=== PATIENT | female | born 1990 | race Caucasian/White ===

== ENCOUNTER 2019-09-02 07:54 | Day surgery (SDC) | payer MEDICAID ==
[~2019-09-02 07:54] MED LIST: Glycopyrrolate 0.2 MG/ML SDV ONE; Midazolam 1 MG/ML 2 ML SDV ONE; Phenylephrine/Normal Saline 100 MCG/ML 10 ML Syringe ONE; Propofol 200 MG/20 ML SDV ONE; Rocuronium 100 MG/10 ML Syringe ONE; Sodium Chloride 0.9% 10 ML SDV IV PRN; Sodium Chloride 0.9% 10 ML Syringe FLUSH PRN; Sodium Chloride 0.9% 2.5 ML Syringe FLUSH PRN; ceFAZolin 1 GM in Premix Bag 1 BAG IV ONE; ePHEDrine 50 MG/ML SDV ONE; fentaNYL 250 MCG/5 ML SDV ONE
[2019-09-02] MEDS: Lactated Ringers 1,000 ML IV SCH ×3 (08:15→21:00)
[2019-09-02] MEDS ORDERED: Scopolamine 1.5 MG Transdermal Patch TRDERM PRN (08:20)
--- NOTE | 2019-09-02 08:20 | PCM.PREANE ---
Preanesthetic Assessment - Anesthesia/Transfusion/Family Hx Anesthesia History: Prior Anesthesia Without Reaction Family History of Anesthesia Reaction: No Transfusion History: No Prior Transfusion(s) Intubation History: Unknown - Review of Systems General: No Symptoms Pulmonary: No Symptoms Cardiovascular: No Symptoms Gastrointestinal: No Symptoms Neurological: No Symptoms Other: Reports: None - Physical Assessment Height: 5 ft 6.25 in Weight: 79.379 kg ASA Class: 2 Mental Status: Alert & Oriented x3 Airway Class: Mallampati = 1 Dentition: Reports: Normal Dentition Thyro-Mental Finger Breadths: 3 Mouth Opening Finger Breadths: 3 ROM/Head Extension: Full Lungs: Clear to Auscultation, Normal Respiratory Effort Cardiovascular: Regular Rate, Regular Rhythm - Allergies Allergies/Adverse Reactions: Allergies Allergy/AdvReac Type Severity Reaction Status Date / Time metoclopramide [From Reglan] Allergy Dizziness Verified 08/27/19 12:20 antidepressants Allergy twitching Uncoded 08/27/19 12:28 hormones Allergy twitching Uncoded 08/27/19 12:28 - Blood Blood Available: No - Anesthesia Plan Pre-Op Medication Ordered: None - Acknowledgements Anesthesia Type Planned: General Anesthesia Pt an Appropriate Candidate for the Planned Anesthesia: Yes Alternatives and Risks of Anesthesia Discussed w Pt/Guardian: Yes Pt/Guardian Understands and Agrees with Anesthesia Plan: Yes PreAnesthesia Questionnaire HEENT History: Reports: Other (See Below) Other HEENT History: wears glasses Cardiovascular History: Reports: Arrhythmia Respiratory History: Reports: None Gastrointestinal History: Reports: None Genitourinary History: Reports: UTI, Recurrent 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 History: Reports: PID, Polycystic Ovaries, Musculoskeletal History: Reports: None Neurological History: Reports: None Psychiatric History: Reports: ADHD, Anxiety, Bipolar, Depression Endocrine/Metabolic History: Reports: None Hematologic History: Reports: None Immunologic History: Reports: None Oncologic (Cancer) History: Reports: None Dermatologic History: Reports: None - Past Surgical History Head Surgeries/Procedures: Reports: None HEENT Surgical History: Reports: Oral Surgery, Tonsillectomy Cardiovascular Surgical History: Reports: None Respiratory Surgical History: Reports: None GI Surgical History: Reports: None Female Surgical History: Reports: Endometrial Ablation, Tubal Ligation Endocrine Surgical History: Reports: None Neurological Surgical History: Reports: None Musculoskeletal Surgical History: Reports: None Oncologic Surgical History: Reports: None Dermatological Surgical History: Reports: None - SUBSTANCE USE Smoking Status *Q: Current Some Day Smoker Tobacco Use Within Last Twelve Months: Cigarettes Recreational Drug Use History: Yes 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 [No Known Home Meds] 08/27/19 [History] - CURRENT (IN HOUSE) MEDS Current Meds: Current Medications Sodium Chloride (Saline Flush) 10 ml FLUSH ASDIRECTED PRN PRN Reason: Keep Vein Open Sodium Chloride (Saline Flush) 2.5 ml FLUSH ASDIRECTED PRN PRN Reason: Keep Vein Open Sodium Chloride (Normal Saline) 10 ml IV ASDIRECTED PRN PRN Reason: IV Use Discontinued Medications Ephedrine Sulfate (Ephedrine Sulfate) Confirm Administered Dose 50 mg .ROUTE .STK-MED ONE Stop: 09/02/19 07:04 Fentanyl (Sublimaze) Confirm Administered Dose 250 mcg .ROUTE .STK-MED ONE Stop: 09/02/19 07:03 Glycopyrrolate (Robinul) Confirm Administered Dose 0.2 mg .ROUTE .STK-MED ONE Stop: 09/02/19 07:04 Glycopyrrolate (Robinul) Confirm Administered Dose 0.2 mg .ROUTE .STK-MED ONE Stop: 09/02/19 07:04 Cefazolin Sodium/Dextrose 1 gm (/ Premix) 50 mls @ 100 mls/hr IV ONETIME ONE Stop: 09/02/19 05:29 Midazolam HCl (Versed 1 Mg/Ml) Confirm Administered Dose 2 mg .ROUTE .STK-MED ONE Stop: 09/02/19 07:02 Phenylephrine HCl (Phenylephrine In Ns 100 Mcg/Ml) Confirm Administered Dose 1 mg .ROUTE .STK-MED ONE Stop: 09/02/19 07:04 Propofol (Diprivan 20 Ml) Confirm Administered Dose 200 mg .ROUTE .STK-MED ONE Stop: 09/02/19 07:03 Rocuronium [place] (Zemuron) Confirm Administered Dose 100 mg .ROUTE .STK-MED ONE Stop: 09/02/19 07:03 Succinylcholine Chloride (Succinylcholine Chloride) Confirm Administered Dose 200 mg .ROUTE .STK-MED ONE Stop: 09/02/19 07:04
[2019-09-02 09:01] LABS: BLOOD UREA NITROGEN,BUN 14 mg/dL (7.0-18.0); CHLORIDE,CL 105 mmol/L (98-107); GLUCOSE RANDOM 88 mg/dL (74-106); POTASSIUM,K 3.9 mmol/L (3.5-5.1); SODIUM,NA 142 mmol/L (136-145)
[2019-09-02] MEDS ORDERED: ceFAZolin 1 GM Vial ONE (09:37)
[2019-09-02] MEDS ORDERED: Propofol 200 MG/20 ML SDV ONE (09:43)
[2019-09-02] MEDS ORDERED: Neostigmine Methylsulfate 1 MG/ML 5 ML Syringe ONE (10:06)
[2019-09-02] MEDS ORDERED: Glycopyrrolate 0.2 MG/ML SDV ONE (10:06)
[2019-09-02] MEDS ORDERED: Fluorescein 5 ML Vial ONE (10:14)
[2019-09-02] MEDS ORDERED: Morphine 4 MG/ML Syringe IVPUSH PRN (10:30)
[2019-09-02] MEDS ORDERED: Promethazine 25 MG/ML SDV IM PRN (10:30)
[2019-09-02] MEDS ORDERED: Bisacodyl 5 MG Tab PO PRN (10:30)
[2019-09-02] MEDS ORDERED: Belladonna Alkaloids/Opium 16.2-30 MG Supp RECTAL PRN (10:30)
[2019-09-02] MEDS ORDERED: Ondansetron 4 MG/2 ML SDV IVPUSH PRN (10:30)
[2019-09-02] MEDS ORDERED: Ketorolac 30 MG/ML SDV IVPUSH ONE (10:30)
[2019-09-02] MEDS ORDERED: Acetaminophen/oxyCODONE 325-5 MG Tab PO PRN (10:30)
--- NOTE | 2019-09-02 10:41 | PCM.OPNOTE ---
- General Post-Op/Procedure Note Date of Surgery/Procedure: 09/02/19 Operative Procedure(s): TVH/cystoscopy Findings: Boggy 8 week size uterus. Normal appearing ovaries. Bilateral patent ureters Pre Op Diagnosis: Menometrorrhagia Post-Op Diagnosis: Same Anesthesia Technique: General ET Tube Primary Surgeon: Lindsay Carreno Stonework Tracer: Orquidea Campoverde Fluid Replacement, Intraop: 1,500 EBL in mLs: 250 Complications: none known Condition: Stable Free Text/Narrative:: Dictation [id number]
[2019-09-02] MEDS ORDERED: HYDROmorphone 1 MG/ML Syringe IM ONE (11:02)
[2019-09-02] MEDS ORDERED: fentaNYL 100 MCG/2 ML SDV ONE (11:04)
[2019-09-02] MEDS: fentaNYL 100 MCG/2 ML SDV IVPUSH PRN ×2 (11:07→11:13)
[2019-09-02] MEDS ORDERED: HYDROmorphone 2 MG/ML Syringe ONE (11:16)
--- NOTE | 2019-09-02 11:43 | PCM.POSTAN ---
POST ANESTHESIA ASSESSMENT - MENTAL STATUS Mental Status: Alert, Oriented - VITAL SIGNS Vital Signs: Last Vital Signs Temp 98.6 F 09/02/19 10:40 Pulse 85 09/02/19 11:30 Resp 14 09/02/19 11:30 BP 109/49 L 09/02/19 11:30 Pulse Ox 99 09/02/19 11:30 - RESPIRATORY Respiratory Status: Respiratory Rate WNL, Airway Patent, O2 Saturation Stable - CARDIOVASCULAR CV Status: Pulse Rate WNL, Blood Pressure Stable - GASTROINTESTINAL GI Status: No Symptoms - PAIN Pain Score: 4 (Pt awake, stable and pain tolerable) - POST OP HYDRATION Hydration Status: Adequate & Stable - OBSERVATIONS Free Text/Narrative:: Pt doing well post op. No nausea and pain well controlled at this time.
--- NOTE | 2019-09-02 11:59 | OR ---
SURGEON: Lindsay Carreno M.D. DATE OF PROCEDURE: 09/02/2019 PREOPERATIVE DIAGNOSIS: Menometrorrhagia. POSTOPERATIVE DIAGNOSIS: Menometrorrhagia. PROCEDURES: Total vaginal hysterectomy, cystoscopy. PRIMARY SURGEON: Lindsay Carreno MD. HIGHWAY TRAFFIC CONTROL TECHNICIAN: Orquidea Campoverde MD. ANESTHESIA: General endotracheal anesthesia. ESTIMATED BLOOD LOSS: 250 mL. COMPLICATIONS: None known. FINDINGS: Boggy 8-week size uterus. Normal-appearing ovaries. Bilateral patent ureters. DISPOSITION: The patient to PACU in stable condition. PROCEDURE DETAILS: Patricia is a 29-year-old female who has had ongoing difficulties with menometrorrhagia. She has tried multiple hormone therapy regimens without relief of her symptomatology. She has had previous tubal ligation. At this time, she prefers to proceed with definitive surgical intervention in the form of hysterectomy. Risks of the procedure have been discussed. Proper consent obtained. The patient was taken to the operating room where she underwent general endotracheal anesthesia, was placed in modified dorsal lithotomy position, and was prepped and draped in usual sterile fashion. SCDs to lower extremities. Quinteros to gravity. Received Ancef prophylactically. Time-out was performed. A weighted speculum and anterior [place] were placed in the vagina. Cervix was grasped with the Sami clamp, tented downward. Cervix was now circumscribed with Bovie cautery. Anteriorly and posteriorly, the overlying mucosa was dissected away from underlying peritoneum. Posterior peritoneum was tented downward and entered sharply. Anterior peritoneum was tented upward and entered. The Deavers were placed to mobilize the posterior rectum and bladder away from the operative field. Trae clamp was utilized on either side to secure the uterosacral ligaments, transected, and suture ligated with 2-0 Vicryl. The remainder of pedicle on either side was able to be secured, transected, and suture ligated. The final pedicle on either side was able to be secured, transected, and suture ligated with a tie and a pass followed by suture tie. There was some bleeding noted along the left upper pedicle. This was secured with Trae clamp again and suture ligated. Hemostasis thereafter evident. The ovaries were inspected and appeared normal. The pedicles were once again inspected and found to be hemostatic. Uterosacral ligaments on either side were suture ligated to the vaginal apex. Pedicles once again inspected and found to be hemostatic. The cuff was closed using 0 Vicryl in continuous running locked fashion after the uterus had been exteriorized and handed to the operating room tech to be sent to pathology. The cuff was closed using 0 Vicryl in continuous running locked fashion. The cuff was inspected found to be hemostatic. Quinteros catheter was removed after balloon was desufflated. The patient had received IV fluorescein and Lasix via anesthesia provider. The cystoscope was introduced into the bladder using normal saline as distention media. The dome of the bladder was able to be visualized followed by the right ureteral orifice followed by the left ureteral orifice. Fluorescein-dyed urine was seen streaming from them, helping to ensure patency. Therefore, cystoscope was removed, bladder was drained, Quinteros catheter replaced. The cuff once again inspected and found to be hemostatic. Sponge, instrument, and needle count was correct x2. The patient has tolerated this procedure well overall. She will go to PACU in stable condition, specimens to pathology. ELVIN / JOSHUA /[id number]
[2019-09-02] MEDS: Morphine 10 MG/ML Syringe IVPUSH PRN ×2 (13:01→15:12)
--- NOTE | 2019-09-02 17:03 | PCM.SN ---
- Free Text/Narrative Note: Patient just had an episode of emesis--but otherwise has not been dealing with nausea. Has cramping pain. VS stable, encourage ambulation tonight. Explained intraoperative findings and procedure. Continue PP cares, may remove lott this evening.
[2019-09-02] MEDS: Ketorolac 30 MG/ML SDV IVPUSH PRN (17:23)
[2019-09-02] MEDS ORDERED: Lactated Ringers 1,000 ML IV SCH (20:00)
--- NOTE | 2019-09-02 20:09 | PCM48HPAN ---
Post Anesthesia Note - EVALUATION WITHIN 48HRS OF ANESTHETIC Vital Signs in Normal Range: Yes Patient Participated in Evaluation: Yes Respiratory Function Stable: Yes Airway Patent: Yes Cardiovascular Function Stable: Yes Hydration Status Stable: Yes Pain Control Satisfactory: Yes Nausea and Vomiting Control Satisfactory: Yes Mental Status Recovered: Yes Vital Signs: Last Vital Signs Temp 98.1 F 09/02/19 19:29 Pulse 73 09/02/19 19:29 Resp 16 09/02/19 19:29 BP 103/53 L 09/02/19 19:29 Pulse Ox 96 09/02/19 19:29
[2019-09-02] MEDS: Acetaminophen/oxyCODONE 325-5 MG Tab PO PRN (21:12)
[2019-09-02] MEDS: Docusate Sodium 100 MG Cap PO SCH (21:13)
[2019-09-03] MEDS: Acetaminophen/oxyCODONE 325-5 MG Tab PO PRN (04:57)
[2019-09-03 07:28] LABS: BLOOD UREA NITROGEN,BUN 7 mg/dL (7.0-18.0); CARBON DIOXIDE,CO2 27.8 mmol/L (21.0-32.0); CHLORIDE,CL 106 mmol/L (98-107); GLUCOSE RANDOM 91 mg/dL (74-106); SODIUM,NA 140 mmol/L (136-145)
[2019-09-03] MEDS: Ketorolac 30 MG/ML SDV IVPUSH PRN (08:32)
--- NOTE | 2019-09-03 08:55 | PCM.SURGPN ---
- General Info Date of Service: 09/03/19 POD#: 1 Functional Status: Reports: Pain Controlled, Tolerating Diet, Ambulating - Review of Systems General: Reports: Fatigue. Denies: Fever, Weakness Pulmonary: Denies: Shortness of Breath Cardiovascular: Denies: Chest Pain, Palpitations, Lightheadedness Gastrointestinal: Reports: Abdominal Pain (low abdominal and back cramping, controlled with pain meds). Denies: Nausea, Vomiting Genitourinary: Denies: Flank Pain Musculoskeletal: Reports: No Symptoms Skin: Reports: No Symptoms Neurological: Reports: No Symptoms Psychiatric: Reports: No Symptoms - Patient Data Vitals - Most Recent: Last Vital Signs Temp 36.5 C 09/03/19 05:11 Pulse 61 09/03/19 05:11 Resp 14 09/03/19 05:11 BP 98/60 09/03/19 05:11 Pulse Ox 99 09/03/19 05:11 Weight - Most Recent: 79.379 kg I&O - Last 24 Hours: Intake & Output 09/02/19 09/03/19 09/03/19 22:59 06:59 14:59 Output Total 5565 625 Balance -1475 -625 Lab Results Last 24 Hrs: Laboratory Results - last 24 hr 09/02/19 09/02/19 09/02/19 Range/Units 08:19 08:19 08:19 WBC (4.0-11.0) K/uL RBC (4.30-5.90) M/uL Hgb (12.0-16.0) g/dL Hct (36.0-46.0) % MCV (80.0-98.0) fL MCH (27.0-32.0) pg MCHC (31.0-37.0) g/dL RDW Std Deviation (28.0-62.0) fl RDW Coeff of Linnea (11.0-15.0) % Plt Count (150-400) K/uL MPV (7.40-12.00) fL Neut % (Auto) (48.0-80.0) % Lymph % (Auto) (16.0-40.0) % [place]well % (Auto) (0.0-15.0) % Eos % (Auto) (0.0-7.0) % Baso % (Auto) (0.0-1.5) % Neut # (Auto) (1.4-5.7) K/uL Lymph # (Auto) (0.6-2.4) K/uL [place] # (Auto) (0.0-0.8) K/uL Eos # (Auto) (0.0-0.7) K/uL Baso # (Auto) (0.0-0.1) K/uL Nucleated RBC % /100WBC Nucleated RBCs # K/uL Sodium 142 (136-145) mmol/L Potassium 3.9 (3.5-5.1) mmol/L Chloride 105 (98-107) mmol/L Carbon Dioxide 28.0 (21.0-32.0) mmol/L BUN 14 (7.0-18.0) mg/dL Creatinine 0.8 (0.6-1.0) mg/dL Est Cr Clr Drug Dosing 98.96 mL/min Estimated GFR (MDRD) > 60.0 ml/min Glucose 88 (74-106) mg/dL Calcium 9.2 (8.5-10.1) mg/dL HCG, Qual NEGATIVE (NEG) Blood Type A POSITIVE Antibody Screen NEGATIVE 09/03/19 09/03/19 Range/Units 06:54 06:54 WBC 7.87 (4.0-11.0) K/uL RBC 3.88 L (4.30-5.90) M/uL Hgb 11.9 L (12.0-16.0) g/dL Hct 34.8 L (36.0-46.0) % MCV 89.7 (80.0-98.0) fL MCH 30.7 (27.0-32.0) pg MCHC 34.2 (31.0-37.0) g/dL RDW Std Deviation 43.8 (28.0-62.0) fl RDW Coeff of Linnea 13 (11.0-15.0) % Plt Count 145 L (150-400) K/uL MPV 9.50 (7.40-12.00) fL Neut % (Auto) 68.6 (48.0-80.0) % Lymph % (Auto) 21.1 (16.0-40.0) % Barn[place] % (Auto) 8.5 (0.0-15.0) % Eos % (Auto) 1.7 (0.0-7.0) % Baso % (Auto) 0.1 (0.0-1.5) % Neut # (Auto) 5.4 (1.4-5.7) K/uL Lymph # (Auto) 1.7 (0.6-2.4) K/uL [place] # (Auto) 0.7 (0.0-0.8) K/uL Eos # (Auto) 0.1 (0.0-0.7) K/uL Baso # (Auto) 0.0 (0.0-0.1) K/uL Nucleated RBC % 0.0 /100WBC Nucleated RBCs # 0 K/uL Sodium 140 (136-145) mmol/L Potassium 4.0 (3.5-5.1) mmol/L Chloride 106 (98-107) mmol/L Carbon Dioxide 27.8 (21.0-32.0) mmol/L BUN 7 (7.0-18.0) mg/dL Creatinine 0.8 (0.6-1.0) mg/dL Est Cr Clr Drug Dosing 98.96 mL/min Estimated GFR (MDRD) > 60.0 ml/min Glucose 91 (74-106) mg/dL Calcium 7.9 L (8.5-10.1) mg/dL HCG, Qual (NEG) Blood Type Antibody Screen Med Orders - Current: Current Medications Belladonna Alkaloids/Opium (B & O Supprettes No. 15a) 1 supp RECTAL Q4H PRN PRN Reason: Pain Last Admin: 09/02/19 12:06 Dose: 1 supp Bisacodyl (Dulcolax) 10 mg PO DAILY PRN PRN Reason: Constipation Docusate Sodium (Colace) 100 mg PO BID [facility] Last Admin: 09/02/19 21:13 Dose: 100 mg Lactated Ringer's (Ringers, Lactated) 1,000 mls @ 100 mls/hr IV ASDIRECTED [facility] Last Admin: 09/02/19 21:00 Dose: 100 mls/hr Lactated Ringer's (Ringers, Lactated) 1,000 mls @ 999 mls/hr IV BOLUS [facility] Last Admin: 09/02/19 20:10 Dose: 999 mls/hr Ketorolac Tromethamine (Toradol) 30 mg IVPUSH Q6H PRN PRN Reason: Pain (severe 7-10) Stop: 09/07/19 10:30 Last Admin: 09/03/19 08:32 Dose: 30 mg Morphine Sulfate (Morphine) 4 mg IVPUSH Q2H PRN PRN Reason: Pain (severe 7-10) Last Admin: 09/02/19 15:12 Dose: 4 mg Ondansetron HCl (Zofran) 4 mg IVPUSH Q6H PRN PRN Reason: Nausea/Vomiting Last Admin: 09/02/19 18:22 Dose: 4 mg Oxycodone/Acetaminophen (Percocet 325-5 Mg) 1 tab PO Q4H PRN PRN Reason: Pain (moderate 4-6) Oxycodone/Acetaminophen (Percocet 325-5 Mg) 2 tab PO Q4H PRN PRN Reason: Pain (moderate 4-6) Last Admin: 09/03/19 04:57 Dose: 2 tab Promethazine HCl (Phenergan) 25 mg IM Q6H PRN PRN Reason: Nausea/Vomiting Scopolamine (Transderm-Scop) 1.5 mg TRDERM Q72H PRN PRN Reason: Nausea Last Admin: 09/02/19 08:25 Dose: 1.5 mg Sodium Chloride (Saline Flush) 10 ml FLUSH ASDIRECTED PRN PRN Reason: Keep Vein Open Sodium Chloride (Saline Flush) 2.5 ml FLUSH ASDIRECTED PRN PRN Reason: Keep Vein Open Sodium Chloride (Normal Saline) 10 ml IV ASDIRECTED PRN PRN Reason: IV Use Discontinued Medications Cefazolin Sodium (Ancef) Confirm Administered Dose 1 gm .ROUTE .STK-MED ONE Stop: 09/02/19 09:38 Ephedrine Sulfate (Ephedrine Sulfate) Confirm Administered Dose 50 mg .ROUTE .STK-MED ONE Stop: 09/02/19 07:04 Fentanyl (Sublimaze) Confirm Administered Dose 250 mcg .ROUTE .STK-MED ONE Stop: 09/02/19 07:03 Fentanyl (Sublimaze) 50 mcg IVPUSH Q5M PRN PRN Reason: Pain Last Admin: 09/02/19 11:13 Dose: 50 mcg Fentanyl (Sublimaze) Confirm Administered Dose 100 mcg .ROUTE .STK-MED ONE Stop: 09/02/19 11:05 Fluorescein Sodium (Ak-Fluor) Confirm Administered Dose 5 ml .ROUTE .STK-MED ONE Stop: 09/02/19 10:15 Glycopyrrolate (Robinul) Confirm Administered Dose 0.2 mg .ROUTE .STK-MED ONE Stop: 09/02/19 07:04 Glycopyrrolate (Robinul) Confirm Administered Dose 0.2 mg .ROUTE .STK-MED ONE Stop: 09/02/19 07:04 Glycopyrrolate (Robinul) Confirm Administered Dose 0.4 mg .ROUTE .STK-MED ONE Stop: 09/02/19 10:07 Hydromorphone HCl (Dilaudid) 1 mg IM ONETIME ONE Stop: 09/02/19 11:03 Last Admin: 09/02/19 11:18 Dose: 1 mg Hydromorphone HCl (Dilaudid) Confirm Administered Dose 2 mg .ROUTE .STK-MED ONE Stop: 09/02/19 11:17 Cefazolin Sodium/Dextrose 1 gm (/ Premix) 50 mls @ 100 mls/hr IV ONETIME ONE Stop: 09/02/19 05:29 Ketorolac Tromethamine (Toradol) 30 mg IVPUSH ONETIME ONE Stop: 09/02/19 10:31 Last Admin: 09/02/19 11:02 Dose: 30 mg Midazolam HCl (Versed 1 Mg/Ml) Confirm Administered Dose 2 mg .ROUTE .STK-MED ONE Stop: 09/02/19 07:02 Morphine Sulfate (Morphine) 4 mg IVPUSH Q2H PRN PRN Reason: Pain (severe 7-10) Neostigmine Methylsulfate (Neostigmine) Confirm Administered Dose 5 mg .ROUTE .STK-MED ONE Stop: 09/02/19 10:07 Phenylephrine HCl (Phenylephrine In Ns 100 Mcg/Ml) Confirm Administered Dose 1 mg .ROUTE .STK-MED ONE Stop: 09/02/19 07:04 Propofol (Diprivan 20 Ml) Confirm Administered Dose 200 mg .ROUTE .STK-MED ONE Stop: 09/02/19 07:03 Propofol (Diprivan 20 Ml) Confirm Administered Dose 200 mg .ROUTE .STK-MED ONE Stop: 09/02/19 09:44 Rocuronium [place] (Zemuron) Confirm Administered Dose 100 mg .ROUTE .STK-MED ONE Stop: 09/02/19 07:03 Succinylcholine Chloride (Succinylcholine Chloride) Confirm Administered Dose 200 mg .ROUTE .STK-MED ONE Stop: 09/02/19 07:04 - Exam General: Alert, Oriented Neck: Supple Lungs: Normal Respiratory Effort Cardiovascular: Regular Rate, Regular Rhythm GI/Abdominal Exam: Normal Bowel Sounds, Soft, Non-Tender, No Distention. No: Guarding, Rigid Extremities: Normal Inspection, Normal Range of Motion, Non-Tender, No Pedal Edema, Normal Capillary Refill Skin: Warm, Dry, Intact Neurological: No New Focal Deficit Psy/Mental Status: Alert, Normal Affect, Normal Mood - Problem List & Annotations (1) Menometrorrhagia SNOMED Code(s): 469132538 Code(s): N92.1 - EXCESSIVE AND FREQUENT MENSTRUATION WITH IRREGULAR CYCLE Status: Acute Current Visit: Yes (2) S/P vaginal hysterectomy SNOMED Code(s): 849934275, 128024814 Code(s): Z90.710 - ACQUIRED ABSENCE OF BOTH CERVIX AND UTERUS Status: Acute Current Visit: Yes - Problem List Review Problem List Initiated/Reviewed/Updated: Yes - My Orders Last 24 Hours: Active Orders 24 hr Category Date Time Status Patient Status [ADT] Routine ADT 09/02/19 10:30 Active Antiembolic Devices [RC] PER UNIT ROUTINE Care 09/02/19 10:31 Active Notify Provider Intake and Out [RC] ASDIRECTED Care 09/02/19 10:30 Active Notify Provider Vital Signs [RC] ASDIRECTED Care 09/02/19 10:30 Active Oxygen Therapy [RC] ASDIRECTED Care 09/02/19 10:30 Active RT Incentive Spirometry [RC] Q2HWA Care 09/02/19 10:30 Active Ready for Discharge [RC] PER UNIT ROUTINE Care 09/03/19 08:52 Active Up With Assistance [RC] PER UNIT ROUTINE Care 09/02/19 10:30 Active Up ad Anamika [RC] PER UNIT ROUTINE Care 09/02/19 10:30 Active Urinary Catheter Removal [RC] Per Unit Routine Care 09/02/19 10:30 Active Vital Signs [RC] PER UNIT ROUTINE Care 09/02/19 10:30 Active Regular Diet [DIET] Diet 09/02/19 Lunch Active Acetaminophen/oxyCODONE [Percocet 325-5 MG] Med 09/02/19 10:30 Active 1 tab PO Q4H PRN Acetaminophen/oxyCODONE [Percocet 325-5 MG] Med 09/02/19 10:30 Active 2 tab PO Q4H PRN Belladonna/Opium [B & O Supprettes No. 15A] Med 09/02/19 10:30 Active 1 supp RECTAL Q4H PRN Bisacodyl [Dulcolax] Med 09/02/19 10:30 Active 10 mg PO DAILY PRN Docusate Sodium [Colace] Med 09/02/19 21:00 Active 100 mg PO BID Ketorolac [Toradol] Med 09/02/19 10:30 Active 30 mg IVPUSH Q6H PRN Lactated Ringers [Ringers, Lactated] 1,000 ml Med 09/02/19 08:30 Active IV ASDIRECTED Lactated Ringers [Ringers, Lactated] 1,000 ml Med 09/02/19 20:00 Active IV BOLUS Morphine Med 09/02/19 12:15 Active 4 mg IVPUSH Q2H PRN Ondansetron [Zofran] Med 09/02/19 10:30 Active 4 mg IVPUSH Q6H PRN Promethazine [Phenergan] Med 09/02/19 10:30 Active 25 mg IM Q6H PRN Scopolamine [Transderm-Scop] Med 09/02/19 08:20 Active 1.5 mg TRDERM Q72H PRN Peripheral IV Discontinue [OM.PC] Routine Oth 09/02/19 10:30 Ordered Sequential Compression Device [OM.PC] Per Unit Routine Oth 09/02/19 10:30 Ordered Resuscitation Status Routine Resus Stat 09/02/19 10:30 Ordered Medication Orders Belladonna Alkaloids/Opium (B & O Supprettes No. 15a) 1 supp RECTAL Q4H PRN PRN Reason: Pain Last Admin: 09/02/19 12:06 Dose: 1 supp Bisacodyl (Dulcolax) 10 mg PO DAILY PRN PRN Reason: Constipation Docusate Sodium (Colace) 100 mg PO BID [facility] Last Admin: 09/02/19 21:13 Dose: 100 mg Lactated Ringer's (Ringers, Lactated) 1,000 mls @ 100 mls/hr IV ASDIRECTED [facility] Last Admin: 09/02/19 21:00 Dose: 100 mls/hr Infusion: 09/02/19 21:00 Dose: 100 mls/hr Admin: 09/02/19 12:14 Dose: 100 mls/hr Infusion: 09/02/19 12:14 Dose: 100 mls/hr Admin: 09/02/19 08:15 Dose: 100 mls/hr Lactated Ringer's (Ringers, Lactated) 1,000 mls @ 999 mls/hr IV BOLUS [facility] Last Admin: 09/02/19 20:10 Dose: 999 mls/hr Ketorolac Tromethamine (Toradol) 30 mg IVPUSH Q6H PRN PRN Reason: Pain (severe 7-10) Stop: 09/07/19 10:30 Last Admin: 09/03/19 08:32 Dose: 30 mg Admin: 09/02/19 17:23 Dose: 30 mg Morphine Sulfate (Morphine) 4 mg IVPUSH Q2H PRN PRN Reason: Pain (severe 7-10) Last Admin: 09/02/19 15:12 Dose: 4 mg Admin: 09/02/19 13:01 Dose: 4 mg Ondansetron HCl (Zofran) 4 mg IVPUSH Q6H PRN PRN Reason: Nausea/Vomiting Last Admin: 09/02/19 18:22 Dose: 4 mg Oxycodone/Acetaminophen (Percocet 325-5 Mg) 1 tab PO Q4H PRN PRN Reason: Pain (moderate 4-6) Oxycodone/Acetaminophen (Percocet 325-5 Mg) 2 tab PO Q4H PRN PRN Reason: Pain (moderate 4-6) Last Admin: 09/03/19 04:57 Dose: 2 tab Admin: 09/02/19 21:12 Dose: 2 tab Promethazine HCl (Phenergan) 25 mg IM Q6H PRN PRN Reason: Nausea/Vomiting Scopolamine (Transderm-Scop) 1.5 mg TRDERM Q72H PRN PRN Reason: Nausea Last Admin: 09/02/19 08:25 Dose: 1.5 mg Sodium Chloride (Saline Flush) 10 ml FLUSH ASDIRECTED PRN PRN Reason: Keep Vein Open Sodium Chloride (Saline Flush) 2.5 ml FLUSH ASDIRECTED PRN PRN Reason: Keep Vein Open Sodium Chloride (Normal Saline) 10 ml IV ASDIRECTED PRN PRN Reason: IV Use - Assessment Assessment (Free Text/Narrative):: POD 1 status post TVH - Plan Plan (Free Text/Narrative):: Ready to go home once able to void. VS and labs are reassuring. Discharge to home once voids. Follow up at [facility] 2 and 6 weeks. Infection and bleeding warnings reviewed. Discharge instructions reviewed.
--- NOTE | 2019-09-03 09:15 | PCM48HPAN ---
Post Anesthesia Note - EVALUATION WITHIN 48HRS OF ANESTHETIC Vital Signs in Normal Range: Yes Patient Participated in Evaluation: Yes Respiratory Function Stable: Yes Airway Patent: Yes Cardiovascular Function Stable: Yes Hydration Status Stable: Yes Pain Control Satisfactory: Yes Nausea and Vomiting Control Satisfactory: Yes Mental Status Recovered: Yes Vital Signs: Last Vital Signs Temp 36.5 C 09/03/19 05:11 Pulse 61 09/03/19 05:11 Resp 14 09/03/19 05:11 BP 98/60 09/03/19 05:11 Pulse Ox 99 09/03/19 05:11 - COMMENTS/OBSERVATIONS Free Text/Narrative:: Denies any problems at this time
[2019-09-03] MEDS: Docusate Sodium 100 MG Cap PO SCH (09:39)
== END 2019-09-03 10:15 | disposition home or self-care (01) ==
LOC: MW.SDS 07:54 → MW.OB 09:06 → MW.SDS 09-03 10:15
PROVIDERS: ATTEND Obstetrics & Gynecology
DX: N92.1 Excessive and frequent menstruation with irregular cycle (principal); F17.210 Nicotine dependence, cigarettes, uncomplicated; Z98.51 Tubal ligation status; Z88.8 Allergy status to other drugs, medicaments and biological substances
CPT/HCPCS: 36415; 58260; 80048; 84703; 85025; 85027; 86850; 86900; 86901; A9270; J0330; J0690; J1170; J1885; J2250; J2270; J2370; J2405; J2704; J3010; J3490; J7120